=== PATIENT | male | born 1995 | race African-American/Black ===

== ENCOUNTER 2021-07-24 21:04 | Emergency (ER) | payer SELFPAY ==
[~2021-07-24] VITALS: Ht 182.9 cm; Wt 65.8 kg
[2021-07-24 21:04] VITALS: BP 45/86
== END 2021-07-24 22:24 | disposition left against medical advice (07) ==
LOC: ER 21:07
DX: R68.84 Jaw pain (principal); Z53.21 Procedure and treatment not carried out due to patient leaving prior to being seen by health care provider